=== PATIENT | female | born 1995 | race Caucasian/White ===

== ENCOUNTER 2016-03-20 10:24 | Emergency (ER) | payer MEDICAID ==
[2016-03-20] MEDS ORDERED: TRAMADOL 50 MG TAB ONE (11:50)
[2016-03-20] MEDS ORDERED: ORPHENADRINE 60 MG/2 ML AMP ONE (11:50)
== END 2016-03-20 13:00 | disposition home or self-care (01) ==
LOC: ER 10:24
DX: S16.1XXA Strain of muscle, fascia and tendon at neck level, initial encounter (principal)
CPT/HCPCS: 96372

== ENCOUNTER 2016-03-22 12:17 | Emergency (ER) | payer MEDICAID ==
[2016-03-22] MEDS ORDERED: ONDANSETRON 4 MG VIAL ONE (12:49)
[2016-03-22] MEDS ORDERED: SODIUM CHLORIDE 0.9% 1,000 ML ONE (12:49)
== END 2016-03-22 14:12 | disposition home or self-care (01) ==
LOC: ER 12:17
DX: A08.4 Viral intestinal infection, unspecified (principal)
CPT/HCPCS: 36415; 80053; 81001; 83690; 84703; 85025; 96361; 96374